=== PATIENT | male | born 1960 | race Caucasian/White ===

== ENCOUNTER 2017-02-23 11:38 | Emergency (ER) | payer SELFPAY ==
[~2017-02-23] VITALS: Ht 175.3 cm; Wt 79.8 kg
[~2017-02-23 11:38] MED LIST: HYDROCODON-ACE1 EAC7 PO; LIDODERM 5% P1 PATCH TD; NOHOMEMEDS
[2017-02-23] MEDS ORDERED: POLYTRIM EYE DR10 ML LEFT EYE (14:57)
[2017-02-23 15:30] VITALS: BP 142/80
== END 2017-02-23 15:31 | disposition home or self-care (01) ==
LOC: EME 11:38
PROC: 08C9XZZ Extirpation of Matter from Left Cornea, External Approach (ICD-10-PCS; principal; 2017-02-23)
DX: T15.02XA Foreign body in cornea, left eye, initial encounter (principal); W20.8XXA Other cause of strike by thrown, projected or falling object, initial encounter; Y99.0 Civilian activity done for income or pay; Z79.82 Long term (current) use of aspirin; F17.200 Nicotine dependence, unspecified, uncomplicated
CPT/HCPCS: 99281; 99284